=== PATIENT | male | born 1950 | race Two or more races ===

== ENCOUNTER 2022-05-14 08:52 | Emergency (ER) | payer OTHER, SELFPAY ==
[2022-05-14 09:34] VITALS: BP 151/81; PULSE 102; RESP 18; TEMP 36.1; O2SAT 97; BMI 31.5
--- NOTE | 2022-05-14 11:02 | ED.GENADULT ---
HPI - General Adult General Chief complaint: General Medical Stated complaint: med refill Time Seen by Provider: 05/14/22 10:51 Source: patient and family Mode of arrival: ambulatory Limitations: no limitations History of Present Illness HPI narrative: 71 y/o male with history of IN with CAD x2 with stents, s/p defibrillator who is from [place] requesting medication refills. He takes Brillinta, Lasix, Lipitor, Coreg, & Capropril. He has been compliant with his medications but will run out soon. He goes back to [place] in July and has no provider here. He denies any recent chest pain, SOB or weight gain. MD complaint: medication refill Relieving factors: none Exacerbating factors: none Associated symptoms: denies other symptoms Treatments prior to arrival: none Related Data Previous Rx's Medication Instructions Recorded atorvastatin 40 mg tablet 40 mg PO BEDTIME #30 tabs 05/14/22 captopril 25 mg tablet 25 mg PO DAILY #30 tabs 05/14/22 carvedilol 12.5 mg tablet 12.5 mg PO BID #60 tabs 05/14/22 furosemide 40 mg tablet (Lasix) 40 mg PO QAM #30 tabs 05/14/22 ticagrelor 90 mg tablet (Brilinta) 90 mg PO BID #60 tabs 05/14/22 Allergies Allergy/AdvReac Type Severity Reaction Status Date / Time Unable to Assess Allergy Unverified 05/14/22 11:04 Review of Systems Review of Systems: Constitutional: No Fever, No Chills Cardiovascular: No Chest Pain, No SOB, No Orthopnea, No Edema Respiratory: No Cough, No Sputum, No Wheezing, No dyspnea Gastrointestinal: No Nausea, No Vomiting, No abdominal Pain Genitourinary: No Dysuria, No Urinary Frequency, No Hematuria Musculoskeletal: No joint pain, No Myalgias Skin: No Skin Lesions, No rash Neuro: No Weakness, No Numbness, No Dizziness, No Headache Heme/Lymph: No Bruising, No Lymphadenopathy PMFSH Social History Social History Advance Directives: No Advance Directives Information Provided: No Physical Exam ED Vital Signs: Vital Signs - 24 hr 05/14/22 09:34 Temperature 96.9 F Pulse Rate 102 H Respiratory Rate 18 Blood Pressure 151/81 H Pulse Oximetry 97 Oxygen Delivery Method Room Air BMI result Body Mass Index 31.5 Appearance: Alert. Oriented X3. No acute distress. HEENT: normal inspection CVS: Normal heart rate and rhythm. Pulses normal. Respiratory: No respiratory distress. Skin: Skin warm and dry. Normal skin color. Normal skin turgor. No rashes. Extremities: normal insepction, no peripheral edema0 Neuro: Oriented X 3. No motor deficit. No sensory deficit. Steady gait Course Course Course Narrative: 71 yo male presents to the ER for medication refills - he has all 5 bottles with him today. He is vitally stable and appears well on examination. Will refill his prescriptions. Will refer to [facility] for further management while he is in [facility]. D/w son who is with him. Stable for d/c. Discharge Plan Discharge Clinical Impression: Encounter for medication refill, CAD (coronary artery disease), CHF (congestive heart failure) Patient Disposition: Home, Self-Care Instructions: Medicine Refill (ED) Additional Instructions: One months worth of your medications have been sent to your pharmacy Recommend following up with a Primary Care provider while you local If you develop new or worsening symptoms call 911 or come back to the ER for further evaluation. Prescriptions: New Brilinta 90 mg tablet 90 mg PO BID Qty: 60 0RF captopril 25 mg tablet 25 mg PO DAILY Qty: 30 0RF carvedilol 12.5 mg tablet 12.5 mg PO BID Qty: 60 0RF Rx Instructions: must administer with a meal/food atorvastatin 40 mg tablet 40 mg PO BEDTIME Qty: 30 0RF furosemide [Lasix] 40 mg tablet 40 mg PO QAM Qty: 30 0RF Interventions: ED Discharge Assessment Last Done: 05/14/22 11:21 Discharge Date/Time: 05/14/22 11:22 Print Language: Mozambican
== END 2022-05-14 11:22 | disposition home or self-care (01) ==
PROVIDERS: Emergency Provider Emergency Medicine Emergency Medical Services
DX: Z76.0 Encounter for issue of repeat prescription (principal); Z79.899 Other long term (current) drug therapy
CPT/HCPCS: 99282; 99283